=== PATIENT | male | born 1990 | race Caucasian/White ===

== ENCOUNTER 2024-11-13 06:41 | Emergency (ER) | payer BC, SELFPAY ==
[2024-11-13 06:43] VITALS: BP 126/84
--- NOTE | 2024-11-13 07:23 | ED.GENMED ---
History of Present Illness
General
Chief Complaint: Back Pain
Source: patient
Exam Limitations: none
Time Seen by Provider: 11/13/24 07:05
History of Present Illness
History of Present Illness:
33-year-old male insulin-dependent diabetic presents with onset of severe pain in between his scapulas that radiated to his chest this morning. This woke him up from sleep. He was sweaty at the onset. He describes pain that does come and go. The
pain is not pleuritic. He describes the discomfort as something is going to explode inside of him. No abdominal pain. No arm or leg pain. No fever. He was slightly nauseous but no vomiting.
Past History
Social History
Tobacco: Non-smoker
Alcohol: None
Drug: None
Phy Exam
Physical Exam
Physical Exam:
General: well appearing male, NAD
HEENT: NC/AT
Heart: RRR, no murmurs
Lungs; CTA
Abd: soft, nontender
Ext: no cyanosis
Vascular: 2+ radial pulse bilaterally
Course
Orders/Labs/Results
Orders:
Orders
11/13/24 07:17
Electrocardiogram (*1) Urgent
Reason for Study: Chest Pain
EKG- Treatment ONCE
11/13/24 07:22
CT Chest Angio W/wo Iv Contras Urgent
Comment:
Reason For Exam: back and chest pain
11/13/24 07:26
Comprehensive Metabolic Panel Urgent
Lipase Urgent
11/13/24 07:27
Complete Blood Count/With Diff Urgent
Troponin I Urgent
Abnormal Lab Results
11/13/24 11/13/24
07:26 07:27
Neutrophils % 41.7 L %
(42.2-75.2)
Eosinophils % 9.8 H %
(0-6)
Carbon Dioxide 31 H mmol/L
(22-30)
Glucose 131 H mg/dl
(70-99)
11/13/24 07:27
11/13/24 07:26
Vital Signs
Initial and Last Documented VS:
Initial Vital Signs
Temp Pulse Resp BP Pulse Ox
97.9 F 54 20 126/84 100
11/13/24 06:43 11/13/24 06:43 11/13/24 06:43 11/13/24 06:43 11/13/24 06:43
Last Documented Vital Signs
Temp Pulse Resp BP Pulse Ox
97.9 F 62 20 112/84 99
11/13/24 06:43 11/13/24 08:00 11/13/24 08:00 11/13/24 08:00 11/13/24 08:00
MDM/Problems Addressed
Differential Diagnosis Includes:
Patient presents with mid scapular pain radiating to the chest severe in nature with associated diaphoresis at the onset. This woke him up from sleep. Vital signs are stable. The pain is intermittent at the time my exam his pain is slightly
improved. Abdominal exam is benign. Consider reflux versus esophagitis versus musculoskeletal discomfort. Given the quality of pain and severity of pain also can consider dissection.
Will check labs EKG troponin lipase. CT of the chest ordered
*Critical Care Note
Total Time (30-74mins, 75-104mins- exclusive of procedures): Not Applicable
Update Note
Update Note:
EKG shows sinus bradycardia no ischemic changes CT angio of the chest was reviewed demonstrates no evidence of aortic dissection. There is signs of esophagitis. Recommend the patient continue with PPI and follow-up with GI. Also recommended
limiting caffeine.
ED Attending Note
-
Portions of this chart may have been created with voice recognition software.� Occasional wrong word or��sound alike� substitutions may have occurred due to the inherent limitations of voice recognition software.
Discharge Plan
Departure
Patient Disposition: Home (Routine Discharge)
Date of Disposition: 11/13/24
Time of Disposition: 08:59
Patient with high blood pressure during this ER visit?: No
Discharge Problem:
Esophagitis
Instructions: Esophagitis
Prescriptions:
New
sucralfate [Carafate] 1 gram tablet
1 g PO BID Qty: 30 0RF
Referrals:
Rachel Patricio MD [Active] -
Diana Gudino CRNP [Family Provider] -
Activity Restrictions/Additional Instructions:
Continue with your omeprazole daily. Use Carafate if needed. Follow-up with GI doctor. Try to limit caffeine.
Interventions
Interventions:
*Risk Screen - Suicide Last Done: 11/13/24 06:43
*General Assessment Last Done: 11/13/24 07:42
*Neglect/Abuse Screening Last Done: 11/13/24 06:43
*ED- Fall Risk Assessment Last Done: 11/13/24 07:42
*ED COVID-19 Vaccine History Last Done: 11/13/24 07:42
ED- Cardiac Assessment Last Done: 11/13/24 07:42
ED-Musculoskeletal Assessment Last Done: 11/13/24 07:42
ED- Pulmonary Assessment Last Done: 11/13/24 07:42
Discharge Date and Time
Print Language: GERMAN
[2024-11-13 07:34] VITALS: BMI 21.6
[2024-11-13 07:51] LABS: % Basophils 1.1 % (0-2); % Eosinophils 9.8 % (0-6); % Immature Granulocytes 0.3 % (0-0.5); % Monocytes 9.1 % (1.7-9.3); % Neutrophils 41.7 % (42.2-75.2); Absolute Basophils 0.1 10^3/uL (0-0.2); Absolute Eosinophils 0.7 10^3/uL (0-0.7); Absolute Lymphocytes 2.7 10^3/uL (1.2-3.4); Absolute Monocytes 0.6 10^3/uL (0.1-0.6); Absolute Neutrophils 2.9 10^3/uL (1.4-6.5); Hematocrit 44.2 % (39.0-52.0); Hemoglobin 15.1 g/dL (13.0-18.0); Mean Corp Hgb Conc. 34.2 g/dL (33.0-37.0); Mean Corpuscular Hgb 29.4 pg (27.0-31.0); Mean Platelet Volume 9.2 fL (7.4-10.4); Nucleated Red Blood Cells % 0 % (-); Platelet Count 250 10^3/uL (130-400); Red Blood Cell Count 5.14 10^6/uL (4.70-6.10); Red Cell Dist. Width 11.9 % (11.5-14.5)
[2024-11-13 07:54] LABS: ALT (SGPT) 24 U/L (0-50); AST (SGOT) 28 U/L (17-59); Alkaline Phosphatase 51 U/L (38-126); Blood Urea Nitrogen 12 mg/dl (9-20); Calcium 10.1 mg/dl (8.4-10.2); Carbon Dioxide 31 mmol/L (22-30); Chloride 106 mmol/L (98-107); Estimated Creatinine Clearance 102 ml/min; Glucose 131 mg/dl (70-99); Lipase 42 U/L (23-300); Potassium 4.3 mmol/L (3.5-5.1); Sodium 143 mmol/L (135-145); Total Bilirubin 0.5 mg/dl (0.2-1.3); Total Protein 6.7 g/dl (6.3-8.2); eGFR > 60.00
[2024-11-13 08:00] VITALS: BP 112/84
[2024-11-13 08:05] LABS: Troponin I < 0.012 ng/ml
[2024-11-13 08:18] VITALS: BP 120/81
[2024-11-13 09:00] VITALS: BP 116/84
== END 2024-11-13 09:29 | disposition home or self-care (01) ==
LOC: EMR 06:41
PROVIDERS: Physician Assistant; EMERGENCY PHYSICIAN Emergency Medicine; FAMILY PHYSICIAN Nurse Practitioner
DX: K20.90 Esophagitis, unspecified without bleeding (principal); E11.9 Type 2 diabetes mellitus without complications
CPT/HCPCS: 99284; 71275; 80053; 83690; 84484; 85025; 93005; Q9967